=== PATIENT | female | born 1945 | race Two or more races ===

== ENCOUNTER 2017-12-09 08:03 | Outpatient (CLI) | payer OTHER ==
[~2017-12-09 08:03] MED LIST: ASPIR 8181 MG
== END 2017-12-09 08:23 | disposition home or self-care (01) ==
LOC: NUCLEAR 08:03
DX: I11.0 Hypertensive heart disease with heart failure (principal); I50.32 Chronic diastolic (congestive) heart failure; I51.7 Cardiomegaly; I34.0 Nonrheumatic mitral (valve) insufficiency; I34.1 Nonrheumatic mitral (valve) prolapse; E78.2 Mixed hyperlipidemia; I82.729 Chronic embolism and thrombosis of deep veins of unspecified upper extremity; I87.2 Venous insufficiency (chronic) (peripheral)

== ENCOUNTER 2019-02-12 11:03 | Outpatient (CLI) | payer OTHER | END 2019-02-12 11:05 | disposition home or self-care (01) | LOC: NUCLEAR 11:03 | DX: M81.0 Age-related osteoporosis without current pathological fracture (principal) ==

== ENCOUNTER 2019-08-07 15:27 | Outpatient (CLI) | payer OTHER | END 2019-08-07 16:47 | disposition home or self-care (01) | LOC: RAD 15:27 | DX: Z12.31 Encounter for screening mammogram for malignant neoplasm of breast (principal); I70.0 Atherosclerosis of aorta ==

== ENCOUNTER 2021-03-06 10:22 | Outpatient (CLI) | payer OTHER | END 2021-03-06 10:39 | disposition home or self-care (01) | LOC: MAMO-SONO 10:22 | PROVIDERS: ATTEND Obstetrics & Gynecology Maternal & Fetal Medicine | DX: Z12.31 Encounter for screening mammogram for malignant neoplasm of breast (principal); Z87.898 Personal history of other specified conditions; N60.11 Diffuse cystic mastopathy of right breast; N63.0 Unspecified lump in unspecified breast; N64.4 Mastodynia ==

== ENCOUNTER 2021-04-25 08:05 | Outpatient (CLI) | payer OTHER | END 2021-04-25 08:14 | disposition home or self-care (01) | LOC: MAMO-SONO 08:05 → NUCLEAR 14:00 | PROVIDERS: ATTEND Internal Medicine Gastroenterology | DX: K76.0 Fatty (change of) liver, not elsewhere classified (principal); E04.8 Other specified nontoxic goiter ==

== ENCOUNTER 2021-06-07 14:55 | Outpatient (CLI) | payer OTHER | END 2021-06-07 15:02 | disposition home or self-care (01) | LOC: NUCLEAR 14:55 | PROVIDERS: ATTEND Obstetrics & Gynecology Maternal & Fetal Medicine | DX: M81.0 Age-related osteoporosis without current pathological fracture (principal) ==

== ENCOUNTER 2021-06-14 15:58 | Outpatient (CLI) | payer OTHER | END 2021-06-14 19:00 | disposition home or self-care (01) | LOC: LAB 15:58 | DX: Z03.818 Encounter for observation for suspected exposure to other biological agents ruled out (principal) ==

== ENCOUNTER 2021-08-06 16:50 | Inpatient (IN) | payer OTHER ==
[~2021-08-06] VITALS: Ht 154.9 cm; Wt 47.6 kg
[2021-08-06] MEDS ORDERED: XARELTO10 MG (16:55)
[2021-08-06] MEDS ORDERED: LOSARTAN POTASS25 MG (16:55)
[2021-08-07] MEDS ORDERED: EZETIMIBE10 MG (11:10)
[2021-08-07] MEDS ORDERED: OMEGA-3 ACID ETH1 GM (11:10)
[2021-08-07] MEDS ORDERED: LOSARTAN-HCTZ1 EACH (11:11)
[2021-08-07] MEDS ORDERED: FLUOROMETHOLONE5 ML (11:11)
[2021-08-07] MEDS ORDERED: ROSUVASTATIN CA20 MG (11:11)
[2021-08-11] MEDS ORDERED: INTEGRA F CAPS1 EACH PO (09:58)
[2021-08-11] MEDS ORDERED: XARELTO10 MG PO (09:58)
== END 2021-08-11 11:36 | DRG 522 ==
LOC: ER 16:50 → SURG-SUITE 23:21
PROVIDERS: Orthopaedic Surgery; ADMIT Internal Medicine; ATTEND Internal Medicine
PROC: 0SRS0JZ Replacement of Left Hip Joint, Femoral Surface with Synthetic Substitute, Open Approach (ICD-10-PCS; principal; 2021-08-08 14:00)
PROC: 4A033R1 Measurement of Arterial Saturation, Peripheral, Percutaneous Approach (ICD-10-PCS; 2021-08-09)
DX: S72.002A Fracture of unspecified part of neck of left femur, initial encounter for closed fracture (principal); M80.052A Age-related osteoporosis with current pathological fracture, left femur, initial encounter for fracture; J98.11 Atelectasis; D62 Acute posthemorrhagic anemia; W18.39XA Other fall on same level, initial encounter; Z20.822 Contact with and (suspected) exposure to COVID-19; Z79.01 Long term (current) use of anticoagulants; R09.02 Hypoxemia
CPT/HCPCS: 71275

== ENCOUNTER 2021-08-26 09:57 | Outpatient (CLI) | payer OTHER ==
[~2021-08-26 09:57] MED LIST changes: +EZETIMIBE10 MG; +FLUOROMETHOLONE5 ML; +INTEGRA F CAPS1 EACH PO; +LOSARTAN POTASS25 MG; +LOSARTAN-HCTZ1 EACH; +OMEGA-3 ACID ETH1 GM; +ROSUVASTATIN CA20 MG; +XARELTO10 MG; +XARELTO10 MG PO
== END 2021-08-26 10:03 | disposition home or self-care (01) ==
LOC: RAD 09:57
PROVIDERS: ATTEND Internal Medicine
DX: I10 Essential (primary) hypertension (principal)

== ENCOUNTER → 2023-01-14 | Outpatient (CLI) | payer OTHER | END | disposition home or self-care (01) | LOC: MAMO-SONO 12:24 | PROVIDERS: ATTEND Family Medicine | DX: I70.0 Atherosclerosis of aorta (principal); Z12.31 Encounter for screening mammogram for malignant neoplasm of breast; D48.60 Neoplasm of uncertain behavior of unspecified breast ==

== ENCOUNTER 2023-04-01 10:21 | Outpatient (CLI) | payer OTHER | END 2023-04-01 10:32 | disposition home or self-care (01) | LOC: SONOGRAMA 10:21 | PROVIDERS: ATTEND Internal Medicine | DX: N39.0 Urinary tract infection, site not specified (principal); N18.9 Chronic kidney disease, unspecified ==

== ENCOUNTER 2023-06-13 13:37 | Outpatient (CLI) | payer OTHER | END 2023-06-13 13:38 | disposition home or self-care (01) | LOC: NUCLEAR 13:37 | PROVIDERS: ATTEND Obstetrics & Gynecology Maternal & Fetal Medicine | DX: M81.0 Age-related osteoporosis without current pathological fracture (principal) ==

== ENCOUNTER 2025-04-27 14:20 | Outpatient (CLI) | payer OTHER | END 2025-04-27 14:28 | disposition home or self-care (01) | LOC: MAMO-SONO 14:20 | PROVIDERS: ATTEND Obstetrics & Gynecology Maternal & Fetal Medicine | DX: N63.0 Unspecified lump in unspecified breast (principal); Z12.31 Encounter for screening mammogram for malignant neoplasm of breast; N64.4 Mastodynia; N60.11 Diffuse cystic mastopathy of right breast ==

== ENCOUNTER 2025-06-15 09:59 | Outpatient (CLI) | payer OTHER | END 2025-06-15 10:02 | disposition home or self-care (01) | LOC: NUCLEAR 09:59 | PROVIDERS: ATTEND Obstetrics & Gynecology Maternal & Fetal Medicine | DX: M81.0 Age-related osteoporosis without current pathological fracture (principal) ==

== ENCOUNTER 2025-07-29 10:47 | Outpatient (CLI) | payer OTHER | END 2025-07-29 10:52 | disposition home or self-care (01) | LOC: SONOGRAMA 10:47 | PROVIDERS: ATTEND Obstetrics & Gynecology | DX: R59.0 Localized enlarged lymph nodes (principal) ==

== ENCOUNTER → 2025-08-11 | Outpatient (CLI) | payer OTHER | END | disposition home or self-care (01) | LOC: RAD 15:13 | DX: M54.2 Cervicalgia (principal); M54.6 Pain in thoracic spine; M54.50 Low back pain, unspecified ==

== ENCOUNTER → 2025-08-23 | Outpatient (CLI) | payer OTHER | END | disposition home or self-care (01) | LOC: MRI 06:39 | PROVIDERS: ATTEND Family Medicine | DX: M54.17 Radiculopathy, lumbosacral region (principal); I70.0 Atherosclerosis of aorta | CPT/HCPCS: 72148; 74175; Q9965 ==